=== PATIENT | female | born 1965 | race Caucasian/White ===

== ENCOUNTER 2022-05-06 10:30 | Outpatient (RCR) | payer MEDICARE, BC, SELFPAY ==
[2022-05-06] MEDS: SODIUM CHLORIDE 0.9 % (FLUSH) 10 ML SYRINGE IVF (10:30)
[2022-05-06] MEDS: HEPARIN 500 UNIT/5 ML SYRINGE IVF (10:30)
== END 2022-06-08 23:59 | disposition home or self-care (01) ==
LOC: CCIC 10:30
PROVIDERS: Visit Provider Clinical Nurse Specialist
DX: C15.9 Malignant neoplasm of esophagus, unspecified (principal)
CPT/HCPCS: 99211; J1642

== ENCOUNTER 2023-04-09 09:00 | Outpatient (RCR) | payer MEDICARE, BC, SELFPAY ==
[2022-12-05 08:35] VITALS: BP 111/76; PULSE 67; RESP 16; TEMP 36.4; O2SAT 99
[2022-12-05] MEDS: HEPARIN 500 UNIT/5 ML SYRINGE IVF (08:38)
[2022-12-05] MEDS: SODIUM CHLORIDE 0.9 % (FLUSH) 10 ML SYRINGE IVF (08:39)
--- NOTE | 2022-12-29 14:16 | ONC.NURNOTE ---
Dx: Esophageal Cancer
== END 2023-06-03 23:59 | disposition home or self-care (01) ==
LOC: CCIC 09:00
PROVIDERS: Visit Provider Internal Medicine Hematology & Oncology
DX: C15.9 Malignant neoplasm of esophagus, unspecified (principal)
CPT/HCPCS: 99211; J1642

== ENCOUNTER 2023-08-12 12:44 | Outpatient (RCR) | payer MEDICARE, BC, SELFPAY ==
[2023-08-12] MEDS: HEPARIN 500 UNIT/5 ML SYRINGE IVF (12:57)
[2023-08-12] MEDS: SODIUM CHLORIDE 0.9 % (FLUSH) 10 ML SYRINGE IVF (12:57)
== END 2024-02-08 23:59 | disposition home or self-care (01) ==
LOC: CCIC 12:44
PROVIDERS: Visit Provider Internal Medicine Hematology & Oncology
DX: C15.9 Malignant neoplasm of esophagus, unspecified (principal)
CPT/HCPCS: 99211; J1642

== ENCOUNTER 2024-11-03 08:30 | Outpatient (RCR) | payer MEDICARE, BC, SELFPAY ==
[2024-05-12] MEDS: HEPARIN 500 UNIT/5 ML SYRINGE IVF (08:38)
[2024-05-12] MEDS: SODIUM CHLORIDE 0.9 % (FLUSH) 10 ML SYRINGE IVF (08:38)
[2024-07-06] MEDS: SODIUM CHLORIDE 0.9 % (FLUSH) 10 ML SYRINGE IVF (09:55)
[2024-07-06] MEDS: HEPARIN 500 UNIT/5 ML SYRINGE IVF (09:55)
[2024-08-17] MEDS: SODIUM CHLORIDE 0.9 % (FLUSH) 10 ML SYRINGE IVF (10:00)
[2024-08-17] MEDS: HEPARIN 500 UNIT/5 ML SYRINGE IVF (10:00)
== END 2024-11-08 23:59 | disposition home or self-care (01) ==
LOC: CCIC 08:30
PROVIDERS: Visit Provider Internal Medicine Hematology & Oncology
DX: C15.9 Malignant neoplasm of esophagus, unspecified (principal)
CPT/HCPCS: 99211; J1642